=== PATIENT | female | born 1990 | race Caucasian/White ===

== ENCOUNTER 2024-03-15 22:52 | Outpatient (CLI) | payer OTHER ==
[~2024-03-15] VITALS: Ht 154.9 cm; Wt 106.1 kg
[2024-03-15 22:34] VITALS: BP 138/56; O2SAT 100
[2024-03-15] MEDS ORDERED: PRENATAL TABLE1 EAC4 PO (22:59)
[2024-03-15] MEDS ORDERED: FOLIC ACID20 MG PO (22:59)
[2024-03-15 23:12] VITALS: BP 120/66
[2024-03-16 02:08] VITALS: BP 135/67
[2024-03-16 07:27] VITALS: BP 132/61
[2024-03-16 12:00] VITALS: BP 110/57
[2024-03-16 12:03] VITALS: BP 110/57
== END 2024-03-16 12:22 | disposition home or self-care (01) ==
LOC: OBS/DEL 22:52
PROVIDERS: ATTEND Obstetrics & Gynecology
DX: O26.853 Spotting complicating pregnancy, third trimester (principal); Z3A.29 29 weeks gestation of pregnancy